=== PATIENT | male | born 1955 | race Caucasian/White ===

== ENCOUNTER 2017-08-01 13:08 | Emergency (ER) | payer BC ==
[2017-08-01 13:13] VITALS: TEMP 97.8; BMI 30.4
--- NOTE | 2017-08-01 13:48 | PDOC ---
History of Present Illness <Cain Alvarado - Last Filed: 08/01/17 16:02> - General History Source: Patient Exam Limitations: No Limitations - History of Present Illness Initial Comments: 08/01/17 16:37 The patient is a 62 year old male with a significant PMH of bronchitis who presents to the emergency department with a persistent cough for 1 week. The patient reports that his cough has gotten progressively worse since last tuesday afternoon. He reports that he was on the bus where the air conditioning was on full blast and when he went home that night his cough was constant. The patient reports that he went to see his doctor on tuesday by which he was diagnosed with an upper chest infection and was given antibiotics that he has been compliant with. The patient reports that he still has a persistent cough with associated phlegm. He reports that he felt a subjective fever this morning. He states that he took tylenol with little relief. He denies any other symptoms. He denies any chest pain, shortness of breath, headache and dizziness. He denies any chills, nausea, vomit, diarrhea ,constipation or urinary symptoms. The patient denies any other complaints. It is noted that the patient had sick contact with his granddaughter. <Blane Lutz - Last Filed: 08/01/17 16:38> - General Chief Complaint: Shortness of Breath Stated Complaint: CHEST PAIN, NAUSEA Time Seen by Provider: 08/01/17 13:48 Past History - Past Medical History COPD: No HTN: Yes Hypercholesterolemia: Yes - Immunization History Immunization Up to Date: Yes - Suicide/Smoking/Psychosocial Hx Smoking Status: No Smoking History: Never smoked Have you smoked in the past 12 months: No Number of Cigarettes Smoked Daily: 0 Information on smoking cessation initiated: No Hx Alcohol Use: Yes (SOCIAL) Drug/Substance Use Hx: No Substance Use Type: None <Cain Alvarado - Last Filed: 08/01/17 16:02> <Blane Lutz - Last Filed: 08/01/17 16:38> - Past Medical History Allergies/Adverse Reactions: Allergies Allergy/AdvReac Type Severity Reaction Status Date / Time Penicillins Allergy Verified 08/01/17 13:09 Home Medications: Ambulatory Orders Atorvastatin Ca [Lipitor] 10 mg PO HS #0 tablet 09/17/15 Metoprolol Tartrate [Lopressor -] 25 mg PO DAILY #0 tablet 09/17/15 Montelukast Na [Singulair -] 10 mg PO HS #0 tablet 09/17/15 Polyethylene Glycol 3350 [Miralax 119 gm Btl -] 17 gm PO DAILY PRN #0 bottle Albuterol Sulfate Inhaler - [Ventolin HFA Inhaler -] 1 - 2 inh PO Q4H #1 inhaler 08/01/17 Review of Systems - Review of Systems Able to Perform ROS?: Yes Comments:: 08/01/17 16:37 Constitutional: No recent illness; no fever ENT: No sore throat Cardiovascular: No palpitations; no chest pain Pulmonary: (+)cough; no trouble breathing Gastrointestinal: No nausea; no vomiting; no diarrhea Genitourinary: No urinary problems; no hematuria Skin: No rash Lymph system: No swollen glands Musculoskeletal: No joint swelling Neurological: No weakness; oo numbness; No Headache; no vertigo; no lightheadedness Psychiatric:No anxiety; no depression <Blane Lutz - Last Filed: 08/01/17 16:38> *Physical Exam - Vital Signs Last Vital Signs Temp Pulse Resp BP Pulse Ox 97.8 F 98 H 18 131/94 100 08/01/17 13:10 08/01/17 13:10 08/01/17 13:10 08/01/17 13:10 08/01/17 13:10 <Cain Alvarado - Last Filed: 08/01/17 16:02> - Vital Signs Last Vital Signs Temp Pulse Resp BP Pulse Ox 97.8 F 98 H 18 131/94 100 08/01/17 13:10 08/01/17 13:10 08/01/17 13:10 08/01/17 13:10 08/01/17 13:10 - Physical Exam Comments: 08/01/17 16:37 Vitals: Triage vital signs reviewed General Appearance: No acute distress, well nourished, well developed Head: Atraumatic Throat: Posterior oropharynx without erythema, mucous membranes moist Neck: Supple; No nuchal rigidity Chest Wall: Nontender Cardiac: Regular rate and rhythm, no murmurs, no rubs, no gallops Lungs: Clear to auscultation bilateral, good air movement bilaterally Abdomen: Soft, nondistended, normal bowel sounds, nontender to palpation Genitourinary: Rectal: Exam deferred Extremities: Full range of motion to all extremities, no cyanosis, clubbing, or edema Skin: Warm and dry, no rashes or lesions, no rash, no petechiae Psych: Normal mood, normal affect <Blane Lutz - Last Filed: 08/01/17 16:38> ED Treatment Course - LABORATORY CBC & Chemistry Diagram: 08/01/17 15:00 08/01/17 15:00 <Cain Alvarado - Last Filed: 08/01/17 16:02> - LABORATORY CBC & Chemistry Diagram: 08/01/17 15:00 08/01/17 15:00 - ADDITIONAL ORDERS Additional order review: Laboratory Results 08/01/17 15:00 Sodium 145 Potassium 4.7 Chloride 109 H Carbon Dioxide 31 Anion Gap 5 L BUN 14 Creatinine 1.0 Creat Clearance w eGFR > 60 Random Glucose 114 H D Calcium 9.4 Total Bilirubin 0.4 AST 9 L D ALT 20 Alkaline Phosphatase 85 Troponin I < 0.02 Total Protein 7.7 Albumin 4.2 08/01/17 15:00 RBC 5.57 MCV 88.1 MCHC 33.1 RDW 14.2 MPV 7.3 L Neutrophils % 72.1 Lymphocytes % 18.0 Monocytes % 8.7 Eosinophils % 0.8 Basophils % 0.4 - Medications Given in the ED: ED Medications Discontinued Medications Generic Name Dose Route Start Last Admin Trade Name Freq PRN Reason Stop Dose Admin Albuterol/Ipratropium 3 amp 08/01/17 15:04 08/01/17 15:05 Duoneb - NEB 08/01/17 15:05 3 amp ONCE ONE Administration <Blane Lutz - Last Filed: 08/01/17 16:38> Medical Decision Making - Medical Decision Making 08/01/17 15:24 62 years old presents to the ED with persistent cough. Patient seen and treated for presumed bronchitis by his primary care provider montelukast and azithromycin however symptomatology of cough productive for sputum continues No fever mild chest discomfort with cough no shortness of breath. No PE DVT risk factors. We'll check chest x-ray labs EKG treat with duo nebs observe and reassess. Differential diagnosis includes viral URI pneumonia or ALLERGIC symptoms 08/01/17 15:58 Reevaluation: Patient feels much better after DuoNeb. No fever no white count no evidence of pneumonia on x-ray labs EKG all within normal limits EKG with no evidence of ischemia troponin negative History examination consistent with resolving pneumonia and given the patient's been treated with azithromycin versus viral bronchitis Findings, need follow-up, strict return instructions discussed with patient. <Cain Alvarado - Last Filed: 08/01/17 16:02> - Medical Decision Making 08/01/17 16:38 The patient is a 62 year old male with a significant PMH of bronchitis who presents to the emergency department with a persistent cough for 1 week. The patient will get a chest x ray and breathing treatment and will be monitored while awaiting results. <Blane Lutz - Last Filed: 08/01/17 16:38> *DC/Admit/Observation/Transfer - Discharge Dispostion Decision to Admit order: No <Cain Alvarado - Last Filed: 08/01/17 16:02> - Attestations Scribe Attestion: 08/01/17 16:38 Documentation prepared by Blane Lutz, acting as medical practitioners for Cain Alvarado MD. <Blane Lutz - Last Filed: 08/01/17 16:38> Diagnosis at time of Disposition: Cough - Prescriptions Prescriptions: Albuterol Sulfate Inhaler - [Ventolin HFA Inhaler -] 1 - 2 inh PO Q4H #1 inhaler - Patient Instructions Printed Discharge Instructions: Cough
[2017-08-01] MEDS ORDERED: ALBUTEROL SO4 2.5/IPRATROPIUM 0.5 INH SOL 3 ML VIAL.NEB. NEB ONE ×2 (15:04→15:17)
[2017-08-01 15:10] LABS: BASO % 0.4 % (0-2.0); EOS % 0.8 % (0-4.5); HEMATOCRIT 49.1 % (35.4-49); HEMOGLOBIN 16.3 GM/dL (11.7-16.9); MCH 29.2 pg (25.7-33.7); MCHC 33.1 g/dl (32.0-35.9); MEAN CELL VOLUME 88.1 fl (80-96); MEAN PLT VOLUME 7.3 fl (7.5-11.1); MONO % 8.7 % (3.8-10.2); NEUT % 72.1 % (42.8-82.8); PLATELET COUNT 307 K/MM3 (134-434); RBC 5.57 M/mm3 (4.00-5.60); RDW 14.2 % (11.9-15.9); WHITE BLOOD COUNT 8.2 K/mm3 (4.0-10.0)
[2017-08-01 15:32] LABS: ALBUMIN 4.2 g/dl (3.4-5.0); ANION GAP 5 (8-16); BLOOD UREA NITROGEN 14 mg/dL (7-18); CALCIUM 9.4 mg/dL (8.5-10.1); CHLORIDE 109 mmol/L (98-107); CO2 31 mmol/L (21-32); GLUCOSE,RANDOM 114 mg/dL (74-106); POTASSIUM 4.7 mmol/L (3.5-5.1); SGOT/AST 9 U/L (15-37); SGPT/ALT 20 U/L (12-78); SODIUM 145 mmol/L (136-145)
[2017-08-01 15:36] LABS: ALK PHOS 85 U/L (45-117); BILIRUBIN,TOTAL 0.4 mg/dL (0.2-1.0); TOT PROT 7.7 g/dl (6.4-8.2)
[2017-08-01 16:54] VITALS: BP 132/88; PULSE 88
--- NOTE | 2017-08-02 11:57 | EKG ---
Test Reason : Blood Pressure : / mmHG Vent. Rate : 092 BPM Atrial Rate : 092 BPM P-R Int : 130 ms QRS Dur : 088 ms QT Int : 370 ms P-R-T Axes : 053 060 065 degrees QTc Int : 457 ms NORMAL SINUS RHYTHM NORMAL ECG WHEN COMPARED WITH ECG OF 07-OCT-2016 17:37, NO SIGNIFICANT CHANGE WAS FOUND Confirmed by MD PEARL, ESVIN ([id number]) on 08/02/2017 11:56:47 AM Referred By: Confirmed By:ESVIN KANG MD
== END 2017-08-01 16:54 | disposition home or self-care (01) ==
LOC: JER 13:08
PROC: 3E0F7GC Introduction of Other Therapeutic Substance into Respiratory Tract, Via Natural or Artificial Opening (ICD-10-PCS; principal; 2017-08-01)
DX: R05 Cough (principal); I10 Essential (primary) hypertension; E78.00 Pure hypercholesterolemia, unspecified
CPT/HCPCS: 36415; 71046-TC-FY; 80053; 84484; 85025; 93005; 93010; 99283-25; J7620

== ENCOUNTER 2017-12-07 11:35 | Emergency (ER) | payer BC ==
[2017-12-07 11:53] VITALS: BP 134/79; PULSE 102; TEMP 98.2; BMI 30.4
[2017-12-07] MEDS ORDERED: ALBUTEROL SO4 2.5/IPRATROPIUM 0.5 INH SOL 3 ML VIAL.NEB. NEB ONE ×2 (12:06→12:30)
--- NOTE | 2017-12-07 12:40 | PDOC ---
History of Present Illness - General Chief Complaint: Respiratory Stated Complaint: RESPIRATORY Time Seen by Provider: 12/07/17 12:13 History Source: Patient Exam Limitations: No Limitations - History of Present Illness Initial Comments: 12/07/17 12:30 c/o 1 week cough worse the past 24hrs coughing up brown sputum no fever or chills. history of bronchitis. non smoker no asthma. Past History - Past Medical History Allergies/Adverse Reactions: Allergies Allergy/AdvReac Type Severity Reaction Status Date / Time Penicillins Allergy Verified 12/07/17 11:53 Home Medications: Ambulatory Orders Albuterol Sulfate Inhaler - [Ventolin Hfa Inhaler -] 1 - 2 inh PO QID #1 inhaler 12/07/17 COPD: No HTN: Yes Hypercholesterolemia: Yes - Immunization History Immunization Up to Date: Yes - Suicide/Smoking/Psychosocial Hx Smoking Status: No Smoking History: Never smoked Have you smoked in the past 12 months: No Number of Cigarettes Smoked Daily: 0 Hx Alcohol Use: Yes (SOCIAL) Drug/Substance Use Hx: No Substance Use Type: None Respiratory Specific PMHX - Complaint Specific PMHX Bronchitis: Yes Review of Systems - Review of Systems Able to Perform ROS?: Yes Is the patient limited Filipino proficient: No Constitutional: No: Symptoms Reported HEENTM: No: Symptoms Reported Respiratory: Yes: Symptoms reported, Cough *Physical Exam - Vital Signs Last Vital Signs Temp Pulse Resp BP Pulse Ox 98.2 F 102 H 22 134/79 97 12/07/17 11:51 12/07/17 11:51 12/07/17 11:51 12/07/17 11:51 12/07/17 11:51 - Physical Exam General Appearance: Yes: Nourished, Appropriately Dressed HEENT: positive: EOMI, YARY Neck: positive: Supple. negative: Tender Respiratory/Chest: positive: Rhonchi (scattered ). negative: Chest Tender Cardiovascular: positive: Regular Rhythm, Regular Rate Gastrointestinal/Abdominal: positive: Normal Bowel Sounds, Soft Musculoskeletal: positive: Normal Inspection Extremity: positive: Normal Capillary Refill, Normal Inspection, Normal Range of Motion Integumentary: positive: Normal Color, Dry, Warm Neurologic: positive: Fully Oriented, Alert, Normal Mood/Affect, Normal Response , Motor Strength 5/5 ED Treatment Course - RADIOLOGY Radiology Studies Ordered: Category Date Time Status CHEST PA & LAT [RAD] Stat Radiology 12/07/17 12:30 Ordered Medical Decision Making - Medical Decision Making 12/07/17 12:41 cc: cough brown sputum last 24hrs no shortness of breath no chest pain will give nebulizer pt is non smoker *DC/Admit/Observation/Transfer Diagnosis at time of Disposition: Bronchitis - Discharge Dispostion Disposition: HOME Condition at time of disposition: Good - Prescriptions Prescriptions: Albuterol Sulfate Inhaler - [Ventolin Hfa Inhaler -] 1 - 2 inh PO QID #1 inhaler - Referrals - Patient Instructions Printed Discharge Instructions: DI for Acute Bronchitis Additional Instructions: drink pleanty of water take tylenol 650mg every 4-6hrs for fever or body pain as needed use the inhaler every 4-6hrs for cough, wheezing increase vitamin C intake to boost immune system follow with your doctor for any worsening symptoms return to ER for any high fever, short of breath , unable to eat or drink or any other concerns - Post Discharge Activity
== END 2017-12-07 13:32 | disposition home or self-care (01) ==
LOC: JERFT 11:35
PROC: 3E0F7GC Introduction of Other Therapeutic Substance into Respiratory Tract, Via Natural or Artificial Opening (ICD-10-PCS; principal; 2017-12-07)
DX: J40 Bronchitis, not specified as acute or chronic (principal)
CPT/HCPCS: 71046-TC-FY; 99281-25; J7620

== ENCOUNTER 2017-12-29 11:29 | Emergency (ER) | payer BC ==
[2017-12-29 12:14] VITALS: BP 109/67; PULSE 92; TEMP 98.8; BMI 30.4
[2017-12-29] MEDS ORDERED: ALBUTEROL SO4 2.5/IPRATROPIUM 0.5 INH SOL 3 ML VIAL.NEB. NEB ONE ×2 (12:54→12:57)
--- NOTE | 2017-12-29 13:06 | PDOC ---
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 Severity: reports: mild Past History - Past Medical History Allergies/Adverse Reactions: Allergies Allergy/AdvReac Type Severity Reaction Status Date / Time Penicillins Allergy Verified 12/29/17 12:10 Home Medications: Ambulatory Orders Albuterol Sulfate Inhaler - [Ventolin Hfa Inhaler -] 1 - 2 inh PO QID #1 inhaler 12/07/17 Fluticasone Prop 0.05% Nasal [Flonase -] 1 - 2 spray NS DAILY #1 spray.pump 02/05 COPD: No HTN: Yes Hypercholesterolemia: Yes - Immunization History Immunization Up to Date: Yes - Suicide/Smoking/Psychosocial Hx Smoking Status: No Smoking History: Never smoked Have you smoked in the past 12 months: No Number of Cigarettes Smoked Daily: 0 Hx Alcohol Use: No Drug/Substance Use Hx: No Substance Use Type: None Respiratory Specific PMHX - Complaint Specific PMHX Bronchitis: Yes Review of Systems - Review of Systems Able to Perform ROS?: Yes Is the patient limited Japanese proficient: No Constitutional: No: Symptoms Reported HEENTM: No: Symptoms Reported Respiratory: Yes: Cough Cardiac (ROS): No: Symptoms Reported ABD/GI: No: Symptoms Reported : No: Symptoms Reported Musculoskeletal: No: Symptoms Reported Integumentary: No: Symptoms Reported *Physical Exam - Vital Signs Last Vital Signs Temp Pulse Resp BP Pulse Ox 98.8 F 92 H 18 109/67 98 12/29/17 12:11 12/29/17 12:11 12/29/17 12:11 12/29/17 12:11 12/29/17 12:11 - Physical Exam General Appearance: Yes: Nourished, Appropriately Dressed HEENT: positive: EOMI, YARY, Normal ENT Inspection, TMs Normal, Pharynx Normal Neck: positive: Supple. negative: Tender Respiratory/Chest: positive: Lungs Clear, Normal Breath Sounds, Decreased Breath Sounds. negative: Chest Tender, Paradoxal Breathing, Crackles, Rales, Rhonchi, Stridor, Wheezing, Hyperresonant, Dullness Cardiovascular: positive: Regular Rhythm, Regular Rate Gastrointestinal/Abdominal: positive: Normal Bowel Sounds, Soft Musculoskeletal: positive: Normal Inspection Extremity: positive: Normal Capillary Refill, Normal Inspection, Normal Range of Motion Integumentary: positive: Normal Color, Dry, Warm Neurologic: positive: Fully Oriented, Alert, Normal Mood/Affect, Normal Response , Motor Strength 07/23 ED Treatment Course - Medications Given in the ED: ED Medications Discontinued Medications Generic Name Dose Route Start Last Admin Trade Name Freq PRN Reason Stop Dose Admin Albuterol/Ipratropium 1 amp 12/29/17 12:54 12/29/17 13:00 Duoneb - NEB 12/29/17 12:55 1 amp ONCE ONE Administration Medical Decision Making - Medical Decision Making 12/29/17 13:13 cc: cough , no fever ran out of antihistamine has had bronchitis for the past 2-3 weeks improved with inhaler and prednisone pt denies chest pain, shortness of breath no abd pain or swelling to legs. *DC/Admit/Observation/Transfer Diagnosis at time of Disposition: Bronchitis - Discharge Dispostion Disposition: HOME Condition at time of disposition: Good - Prescriptions Prescriptions: Fluticasone Prop 0.05% Nasal [Flonase -] 1 - 2 spray NS DAILY #1 spray.pump - Referrals - Patient Instructions Additional Instructions: please follow with your primary care or the pulmonolgy doctor [phone] use your inhaler that you have at home continue taking your allergy medication use the Flonase to help with cough and post nasal drip return if any worse bring copies of the cat scan with you to your doctor - Post Discharge Activity
== END 2017-12-29 16:37 | disposition home or self-care (01) ==
LOC: JERFT 11:29
PROC: 3E0F7GC Introduction of Other Therapeutic Substance into Respiratory Tract, Via Natural or Artificial Opening (ICD-10-PCS; principal; 2017-12-29)
DX: J40 Bronchitis, not specified as acute or chronic (principal); I10 Essential (primary) hypertension; E78.00 Pure hypercholesterolemia, unspecified
CPT/HCPCS: 71250-TC; 99281-25; J7620

== ENCOUNTER 2018-01-20 11:28 | Emergency (ER) | payer BC ==
[2018-01-20 11:45] VITALS: BP 148/84; PULSE 94; TEMP 98.3; BMI 30.4
[2018-01-20] MEDS ORDERED: ALBUTEROL SO4 2.5/IPRATROPIUM 0.5 INH SOL 3 ML VIAL.NEB. NEB ONE ×2 (12:30→12:31)
--- NOTE | 2018-01-20 12:35 | PDOC ---
History of Present Illness - General Chief Complaint: Respiratory Stated Complaint: CHEST PAIN Time Seen by Provider: 01/20/18 12:18 History Source: Patient Exam Limitations: No Limitations - History of Present Illness Initial Comments: 01/20/18 12:30 62 yr male with history of asthma states he called out of work today because he was coughing during the night. no fever no shortness of breath. 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 Past History - Past Medical History Allergies/Adverse Reactions: Allergies Allergy/AdvReac Type Severity Reaction Status Date / Time Penicillins Allergy Verified 01/20/18 11:41 Home Medications: Ambulatory Orders Albuterol Sulfate Inhaler - [Ventolin Hfa Inhaler -] 1 - 2 inh PO QID #1 inhaler 12/07/17 Fluticasone Prop 0.05% Nasal [Flonase -] 1 - 2 spray NS DAILY #1 spray.pump 02/05 Asthma: Yes COPD: No HTN: Yes Hypercholesterolemia: Yes - Immunization History Immunization Up to Date: Yes - Suicide/Smoking/Psychosocial Hx Smoking Status: No Smoking History: Never smoked Have you smoked in the past 12 months: No Number of Cigarettes Smoked Daily: 0 Hx Alcohol Use: No Drug/Substance Use Hx: No Substance Use Type: None Respiratory Specific PMHX - Complaint Specific PMHX Bronchitis: Yes Pneumonia: Yes Review of Systems - Review of Systems Able to Perform ROS?: Yes Is the patient limited Mexican proficient: No Constitutional: No: Symptoms Reported HEENTM: No: Symptoms Reported Respiratory: Yes: Cough Integumentary: No: Symptoms Reported *Physical Exam - Vital Signs Last Vital Signs Temp Pulse Resp BP Pulse Ox 98.3 F 94 H 18 148/84 99 01/20/18 11:43 01/20/18 11:43 01/20/18 11:43 01/20/18 11:43 01/20/18 11:43 - Physical Exam General Appearance: Yes: Nourished, Appropriately Dressed HEENT: positive: EOMI, YARY, Normal ENT Inspection, TMs Normal, Pharynx Normal Neck: positive: Supple. negative: Tender Respiratory/Chest: positive: Lungs Clear, Normal Breath Sounds. negative: Chest Tender, Paradoxal Breathing, Crackles, Rales, Rhonchi, Stridor, Wheezing, Hyperresonant, Dullness Cardiovascular: positive: Regular Rhythm, Regular Rate Gastrointestinal/Abdominal: positive: Normal Bowel Sounds, Soft Lymphatic: negative: Adenopathy Musculoskeletal: positive: Normal Inspection Extremity: positive: Normal Capillary Refill, Normal Inspection, Normal Range of Motion Integumentary: positive: Normal Color, Dry, Warm Neurologic: positive: Fully Oriented, Alert, Normal Mood/Affect, Normal Response , Motor Strength 5/5 Medical Decision Making - Medical Decision Making 01/20/18 12:37 cc: cough called out of work asking for work note pt has no fever no wheezing, stable vitals will give duoneb as pt states that made him feel better in the past pt has history of asthma no intubations *DC/Admit/Observation/Transfer Diagnosis at time of Disposition: Cough - Discharge Dispostion Disposition: HOME Condition at time of disposition: Good - Referrals Referrals: Jean Calderón MD [Primary Care Provider] - Felice Ramos MD [Staff Physician] - - Patient Instructions Additional Instructions: please follow with your doctor or with the pulmonary doctor Dr. Alcala drink pleanty of water, take vitamin C such as Jyotsna C to boost immune system return if any worsening symptoms - Post Discharge Activity Forms/Work/School Notes: Back to Work
--- NOTE | 2018-01-23 12:00 | EKG ---
Test Reason : Blood Pressure : / mmHG Vent. Rate : 092 BPM Atrial Rate : 092 BPM P-R Int : 126 ms QRS Dur : 102 ms QT Int : 376 ms P-R-T Axes : 056 065 060 degrees QTc Int : 464 ms NORMAL SINUS RHYTHM NORMAL ECG WHEN COMPARED WITH ECG OF 01-AUG-2017 13:17, NO SIGNIFICANT CHANGE WAS FOUND Confirmed by ADDY FLEMING MD ([id number]) on 01/23/2018 11:59:27 AM Referred By: Confirmed By:ADDY FLEMING MD
== END 2018-01-20 12:52 | disposition home or self-care (01) ==
LOC: JERFT 11:28
PROC: 3E0F7GC Introduction of Other Therapeutic Substance into Respiratory Tract, Via Natural or Artificial Opening (ICD-10-PCS; principal; 2018-01-20)
DX: R05 Cough (principal); I10 Essential (primary) hypertension; E78.00 Pure hypercholesterolemia, unspecified
CPT/HCPCS: 93005; 93010; 99281-25

== ENCOUNTER 2018-05-11 11:54 | Emergency (ER) | payer BC ==
[2018-05-11 12:03] VITALS: BP 139/81; PULSE 98; TEMP 98.6; BMI 30.4
[2018-05-11] MEDS ORDERED: ALBUTEROL SO4 2.5/IPRATROPIUM 0.5 INH SOL 3 ML VIAL.NEB. NEB ONE ×2 (12:49→12:51)
--- NOTE | 2018-05-11 12:49 | PDOC ---
History of Present Illness - General Chief Complaint: Cold Symptoms Stated Complaint: COUGHING Time Seen by Provider: 05/11/18 12:14 History Source: Patient Exam Limitations: No Limitations - History of Present Illness Initial Comments: 05/11/18 13:11 HISTORY OF PRESENT ILLNESS: This 63-year-old male denies medical history presents emergency department for evaluation of coughing since last night. Patient reports while waiting for the bus she was surrounded by smokers and other people who were coughing and his direction. Patient reports when he got home he began coughing and has had coughing fits throughout the night. Patient reports one episode of posttussive vomiting. Denies any fevers, chills, headache , chest pain, abdominal pain, nausea. No recent travel or sick contacts. PAST MEDICAL HISTORY: Denies past medical history SURGICAL HISTORY: Denies ALLERGIES: PCN REVIEW OF SYSTEMS General/Constitutional: Denies fever or chills. Denies weakness, weight change. HEENT: Denies change in vision. Denies ear pain or discharge. Denies sore throat. Cardiovascular: Denies chest pain or shortness of breath. Respiratory: see HPI Gastrointestinal: Denies nausea, vomiting, diarrhea or constipation. Denies rectal bleeding. Genitourinary: Denies dysuria, frequency, or change in urination. Musculoskeletal: Denies joint or muscle swelling or pain. Denies neck or back pain. Skin and breasts: Denies rash or easy bruising. Neurologic: Denies headache, vertigo, loss of consciousness, or loss of sensation. Psychiatric: Denies depression or anxiety. Endocrine: Denies increased thirst. Denies abnormal weight change. Hematologic/Lymphatic: Denies anemia, easy bleeding, or history of blood clots. Allergic/Immunologic: Denies hives or skin allergy. Denies latex allergy. PHYSICAL EXAM General Appearance: Well-appearing, appropriately dressed. No apparent distress , no intoxication. HEENT: EOMI, PERRLA, normal ENT inspection, normal voice, TMs normal, pharynx normal. No conjunctival pallor. No photophobia, scleral icterus. Neck: Supple. Trachea midline. No tenderness, rigidity, carotid bruit, stridor , lymphadenopathy, or thyromegaly. Respiratory/Chest: Lungs CTAB. No shortness of breath, chest tenderness, respiratory distress, accessory muscle use. No crackles, rales, rhonchi, stridor , wheezing, dullness Cardiovascular: RRR. S1, S2. No JVD, murmur, bradycardia, tachycardia. Vascular Pulses: Dorsalis-Pedis (R): 2+, Dorsalis-Pedis (L): 2+ Gastrointestinal/Abdominal: Normal bowel sounds. Abdomen soft, non-distended. No tenderness or rebound tenderness. No organomegaly, pulsatile mass, guarding, hernia, hepatomegaly, splenomegaly. Lymphatic: No adenopathy, tenderness. Musculoskeletal/Extremities: Normal inspection. FROM of all extremities, normal capillary refill. Pelvis Stable. No CVA tenderness. No tenderness to extremities, pedal edema, swelling, erythema or deformity. Integumentary: Appropriate color, dry, warm. No cyanosis, erythema, jaundice or rash Neurologic: lap regulator II-XII intact. Fully oriented, alert. Appropriate mood/affect. Motor strength 5/5. No appreciable EOM palsy, facial droop or sensory deficit. Past History - Past Medical History Allergies/Adverse Reactions: Allergies Allergy/AdvReac Type Severity Reaction Status Date / Time Penicillins Allergy Verified 05/11/18 12:01 Home Medications: Ambulatory Orders Benzonatate [Tessalon Pearls -] 200 mg PO TID #42 cap 05/11/18 Asthma: Yes COPD: No HTN: Yes Hypercholesterolemia: Yes - Immunization History Immunization Up to Date: Yes - Suicide/Smoking/Psychosocial Hx Smoking Status: No Smoking History: Never smoked Have you smoked in the past 12 months: No Number of Cigarettes Smoked Daily: 0 Hx Alcohol Use: No Drug/Substance Use Hx: No Substance Use Type: None Respiratory Specific PMHX - Complaint Specific PMHX Bronchitis: Yes Pneumonia: Yes *Physical Exam - Vital Signs Last Vital Signs Temp Pulse Resp BP Pulse Ox 98.6 F 98 H 20 139/81 99 05/11/18 12:01 05/11/18 12:01 05/11/18 12:01 05/11/18 12:01 05/11/18 12:01 Moderate Sedation - Procedure Monitoring Vital Signs: Procedure Monitoring Vital Signs Temperature 98.6 F 05/11/18 12:01 Pulse Rate 98 H 05/11/18 12:01 Respiratory Rate 20 05/11/18 12:01 Blood Pressure 139/81 05/11/18 12:01 O2 Sat by Pulse Oximetry (%) 99 05/11/18 12:01 Medical Decision Making - Medical Decision Making 05/11/18 13:16 Social A/P: 63-year-old male with nonproductive cough for 1 day No fevers Denies chest pain Not on any medications Patient likely with bronchitis DuoNeb's Reassess 05/11/18 13:25 Patient expresses relief and is requesting discharge at this time. I will discharge the patient home with prescription for Tessalon Perles and follow-up with primary doctor. I discussed the physical exam findings, ancillary test results and final diagnoses with the patient. I answered all of the patient's questions. The patient was satisfied with the care received and felt comfortable with the discharge plan and treatment plan. The patient will call their primary care physician within 24 hours to arrange follow-up and will return to the Emergency Department with any new, persistent or worsening symptoms. *DC/Admit/Observation/Transfer Diagnosis at time of Disposition: Bronchitis - Discharge Dispostion Disposition: HOME Condition at time of disposition: Stable Decision to Admit order: No - Prescriptions Prescriptions: Benzonatate [Tessalon Pearls -] 200 mg PO TID #42 cap - Referrals - Patient Instructions Additional Instructions: Rest, drink lots of fluids: Teas, water, soups, Pedialyte Avoid contact with others until fevers and cough resolved Lots of handwashing and good hygiene Continue [id number] medications for symptomatic relief Tylenol or Motrin for fever and pain Followup with private physician in one to 2 days as needed Return to emergency department for worsened symptoms, fevers, dehydration - Post Discharge Activity Forms/Work/School Notes: Back to Work
== END 2018-05-11 13:33 | disposition home or self-care (01) ==
LOC: JERFT 11:54
PROC: 3E0F7GC Introduction of Other Therapeutic Substance into Respiratory Tract, Via Natural or Artificial Opening (ICD-10-PCS; principal; 2018-05-11)
DX: J40 Bronchitis, not specified as acute or chronic (principal); I10 Essential (primary) hypertension; E78.00 Pure hypercholesterolemia, unspecified; Z87.09 Personal history of other diseases of the respiratory system
CPT/HCPCS: 99281-25

== ENCOUNTER 2018-05-15 12:42 | Observation (INO) | payer BC ==
--- NOTE | 2018-05-15 14:05 | PDOC ---
History of Present Illness - General Chief Complaint: Pain Stated Complaint: SLIP AND FALL Time Seen by Provider: 05/15/18 13:48 - History of Present Illness Initial Comments: 05/15/18 14:04 63-year-old male without comorbidities presents for evaluation of a syncopal episode. He was treated for bronchitis with Tessalon Perles over the last week and today when he got up in the morning to go to bathroom he felt weak syncopized hit his head on the floor he states he may have been unconscious for about 5-7 minutes before his discovered him. Past History - Past Medical History Allergies/Adverse Reactions: Allergies Allergy/AdvReac Type Severity Reaction Status Date / Time Penicillins Allergy Verified 05/11/18 12:01 Home Medications: Ambulatory Orders Benzonatate [Tessalon Pearls -] 200 mg PO TID #42 cap 05/11/18 Asthma: Yes COPD: No HTN: Yes Hypercholesterolemia: Yes - Immunization History Immunization Up to Date: Yes - Suicide/Smoking/Psychosocial Hx Smoking Status: No Smoking History: Never smoked Have you smoked in the past 12 months: No Number of Cigarettes Smoked Daily: 0 Information on smoking cessation initiated: No Hx Alcohol Use: No Drug/Substance Use Hx: No Substance Use Type: None Review of Systems - Review of Systems Constitutional: Yes: Chills, Fever, Malaise, Night Sweats, Weakness Neurological: Yes: See HPI, Unsteady Gait *Physical Exam - Vital Signs Last Vital Signs Temp Pulse Resp BP Pulse Ox 98.7 F 97 H 20 137/76 95 05/15/18 12:48 05/15/18 12:48 05/15/18 12:48 05/15/18 12:48 05/15/18 12:48 - Physical Exam Comments: 05/15/18 14:04 HEAD: NC/AT EYES: Conjuntiva clear Ears: Canals and TM's normal NOSE: No d/c THROAT: Moist mucous membrances, oral pharanx clear, uvula midline NECK: Supple without adenopathy CARDIAC: S1 S2 LUNGS: Right sided basilar rhonchi otherwise clear ABDOMEN: Soft NT ND MS: Full ROM in all joints without edema NEUROLOGIC: No gross sensory or motor deficits, NVID SKIN: Normal color and temperature no lesions or rashes Moderate Sedation - Procedure Monitoring Vital Signs: Procedure Monitoring Vital Signs Temperature 98.7 F 05/15/18 12:48 Pulse Rate 97 H 05/15/18 12:48 Respiratory Rate 20 05/15/18 12:48 Blood Pressure 137/76 05/15/18 12:48 O2 Sat by Pulse Oximetry (%) 95 05/15/18 12:48 ED Treatment Course - RADIOLOGY Radiology Studies Ordered: Category Date Time Status CHEST PA & LAT [RAD] Stat Radiology 05/15/18 14:03 Ordered Medical Decision Making - Medical Decision Making 05/15/18 14:05 Preliminary orders placed for cardiac workup and head CAT scan, patient moved to the main emergency room. *DC/Admit/Observation/Transfer Diagnosis at time of Disposition: Syncope - Referrals - Patient Instructions - Post Discharge Activity
[2018-05-15 14:34] LABS: BASO % 0.4 % (0-2.0); EOS % 0.8 % (0-4.5); HEMATOCRIT 48.2 % (35.4-49); HEMOGLOBIN 16.7 GM/dL (11.7-16.9); LYMPH % 21.2 % (8-40); MCH 30.6 pg (25.7-33.7); MCHC 34.7 g/dl (32.0-35.9); MEAN CELL VOLUME 88.2 fl (80-96); MEAN PLT VOLUME 7.2 fl (7.5-11.1); MONO % 9.2 % (3.8-10.2); NEUT % 68.4 % (42.8-82.8); PLATELET COUNT 249 K/MM3 (134-434); RBC 5.46 M/mm3 (4.00-5.60); RDW 13.8 % (11.9-15.9)
--- NOTE | 2018-05-15 14:44 | PDOC ---
History of Present Illness - General Chief Complaint: Pain Stated Complaint: SLIP AND FALL Time Seen by Provider: 05/15/18 13:48 History Source: Patient - History of Present Illness Initial Comments: 05/15/18 14:37 63 yr old man with HTN, HLD, recurrent bronchitis presented to ED s/p syncopal episode resulting in fall. He was coming out of the bathroom walking toward his bedroom, he walked about 2ft when he felt lightheaded and his body turned to the left and he landed onto the right side of his body and hit the back of his head. Thinks he may have been down for about 5mins when his walked down the rodriguez and tried to help him him, initially she was unable to him up, he crawled into his bedroom and helped himself stand up slowly. He was here 4 days ago in the ED for URI symptoms and was sent home with tessalon pearls for cough , he picked up them and started taking them last night. He did not take his metoprolol this morning. He has had syncopal episodes in the past, inpatient holter monitor and head imaging were completed at that time. 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 Past History - Past Medical History Allergies/Adverse Reactions: Allergies Allergy/AdvReac Type Severity Reaction Status Date / Time Penicillins Allergy Verified 05/11/18 12:01 Home Medications: Ambulatory Orders Benzonatate [Tessalon Pearls -] 200 mg PO TID #42 cap 05/11/18 Asthma: Yes COPD: No HTN: Yes Hypercholesterolemia: Yes - Immunization History Immunization Up to Date: Yes - Suicide/Smoking/Psychosocial Hx Smoking Status: No Smoking History: Never smoked Have you smoked in the past 12 months: No Number of Cigarettes Smoked Daily: 0 Information on smoking cessation initiated: No Hx Alcohol Use: No Drug/Substance Use Hx: No Substance Use Type: None Review of Systems - Review of Systems Respiratory: Yes: Cough Cardiac (ROS): Yes: Syncope *Physical Exam - Vital Signs Last Vital Signs Temp Pulse Resp BP Pulse Ox 98.7 F 97 H 20 137/76 95 05/15/18 12:48 05/15/18 12:48 05/15/18 12:48 05/15/18 12:48 05/15/18 12:48 - Physical Exam General Appearance: Yes: Appropriately Dressed HEENT: positive: EOMI, YARY, Normal Voice, Symmetrical, Pharynx Normal. negative: Scleral Icterus (R), Scleral Icterus (L), Pharyngeal Erythema, Tonsillar Exudate, Nasal Congestion, Rhinorrhea, Sinus Tenderness, Thrush Neck: positive: Trachea midline, Normal Thyroid, Supple. negative: Thyromegaly Respiratory/Chest: positive: Chest Tender (left posterior and lateral pain to palpiation below scapula), Crackles (fine right basilar crackles), Rales (LLL). negative: Wheezing Cardiovascular: positive: Regular Rhythm, Regular Rate, S1, S2. negative: Murmur Gastrointestinal/Abdominal: positive: Normal Bowel Sounds, Flat, Soft. negative : Tenderness Neurologic: positive: parish nurse II-XII NML intact, Fully Oriented, Alert, Normal Response, Motor Strength 5/5 Moderate Sedation - Procedure Monitoring Vital Signs: Procedure Monitoring Vital Signs Temperature 98.7 F 05/15/18 12:48 Pulse Rate 97 H 05/15/18 12:48 Respiratory Rate 20 05/15/18 12:48 Blood Pressure 137/76 05/15/18 12:48 O2 Sat by Pulse Oximetry (%) 95 05/15/18 12:48 ED Treatment Course - LABORATORY CBC & Chemistry Diagram: 05/15/18 14:25 05/15/18 14:25 - ADDITIONAL ORDERS Additional order review: 05/15/18 14:25 RBC 5.46 MCV 88.2 MCHC 34.7 RDW 13.8 MPV 7.2 L Neutrophils % 68.4 Lymphocytes % 21.2 Monocytes % 9.2 Eosinophils % 0.8 Basophils % 0.4 Medical Decision Making - Medical Decision Making 05/15/18 14:48 63 yr old man with hx HTN, HLD, recurrent bronchitis, and previous hx of syncope presents with URI symptoms for past week with 1 syncopal episode this morning. check cxy, labs, head ct, EKG to r/o infiltrate, acute infection, electrolyte abnormalities, CVA vs ACS. if head ct negative, r/o ACS with serial troponins and telemonitoring 05/15/18 16:[address] Kate's office regarding pt message was taken by his office staff, pt to be placed under Dr. Kate's service to tele-obs, he will call [phone] with any additional questions. 05/15/18 16:[address] Kate, requests pt to be placed under dr. Riggs's c, he will call dr. riggs himself and inform him pt pending tele bed *DC/Admit/Observation/Transfer Diagnosis at time of Disposition: Syncope - Discharge Dispostion Decision to Admit order: Yes - Referrals - Patient Instructions - Post Discharge Activity
[2018-05-15 14:46] LABS: INR 0.97 (0.83-1.09); PROTHROMBIN TIME (PATIENT) 11.4 SEC (9.7-13.0)
[2018-05-15 15:11] LABS: ALK PHOS 92 U/L (45-117); ANION GAP 4 MMOL/L (8-16); BILIRUBIN,TOTAL 0.5 mg/dL (0.2-1); BLOOD UREA NITROGEN 11 mg/dL (7-18); CHLORIDE 109 mmol/L (98-107); CO2 31 mmol/L (21-32); GLUCOSE,RANDOM 103 mg/dL (74-106); MAGNESIUM 2.3 mg/dL (1.8-2.4); POTASSIUM 4.3 mmol/L (3.5-5.1); SGOT/AST 14 U/L (15-37); SGPT/ALT 23 U/L (13-61); SODIUM 144 mmol/L (136-145); TOT PROT 7.5 g/dl (6.4-8.2)
[2018-05-15] MEDS ORDERED: SODIUM CHLORIDE 1,000 ML IV STA (16:16)
--- NOTE | 2018-05-15 16:20 | PDOC ---
Attending Attestation - HPI HPI: 05/15/18 16:20 The patient is a 63 year old male with a past medical history of HTN, HLD, and recurrent bronchitis here today for evaluation of syncopal episode. The patient reports that he was in his bathroom this morning when he began to feel dizzy and lose his balance. He reports falling and hitting the back of his head and remained on the floor for 5 minutes until his helped him up. Patient denies headache. Denies fever, chills. Denies chest pain, shortness of breath. Denies nausea, vomiting, diarrhea, abdominal pain. Allergies: penicillins PCP: Hardeep Enriquez - Medical Decision Making 05/15/18 16:21 Documentation prepared by SIENNA Small, acting as medical oncology physician for Cain Alvarado MD. The patient is a 63 year old male with a past medical history of HTN, HLD, and recurrent bronchitis here today for evaluation of syncopal episode. <Sukhjinder Armijo - Last Filed: 05/15/18 16:20> - Resident Resident Name: Saba Abdul - ED Attending Attestation I have performed the following: I have examined & evaluated the patient, The case was reviewed & discussed with the resident, I agree w/resident's findings & plan, Exceptions are as noted - Physicial Exam PE: 05/15/18 16:52 Reviewed Residents PE - Medical Decision Making 63 years old with unprovoked syncopal episode with head trauma Labs head CT unremarkable we'll observe overnight on telemetry for further management. <Cain Alvarado - Last Filed: 05/15/18 16:53>
--- NOTE | 2018-05-15 20:20 | EKG ---
Test Reason : Blood Pressure : / mmHG Vent. Rate : 083 BPM Atrial Rate : 083 BPM P-R Int : 138 ms QRS Dur : 082 ms QT Int : 378 ms P-R-T Axes : 053 051 057 degrees QTc Int : 444 ms NORMAL SINUS RHYTHM POSSIBLE LEFT ATRIAL ENLARGEMENT POSSIBLE SEPTAL INFARCT , AGE UNDETERMINED ABNORMAL ECG WHEN COMPARED WITH ECG OF 20-JAN-2018 11:41, SEPTAL INFARCT IS NOW PRESENT Confirmed by LONNIE PLAZA, ADDY ([id number]) on 05/15/2018 8:20:32 PM Referred By: RAPHAEL Confirmed By:ADDY FLEMING MD
[2018-05-16 06:07] VITALS: BMI 29.9
--- NOTE | 2018-05-16 10:18 | HP ---
Admitting History and Physical - Primary Care Physician PCP: Shiela Mack - Admission Chief Complaint: syncope History of Present Illness: ER HISTORY 05/15/18 14:37 63 yr old man with HTN, HLD, recurrent bronchitis presented to ED s/p syncopal episode resulting in fall. He was coming out of the bathroom walking toward his bedroom, he walked about 2ft when he felt lightheaded and his body turned to the left and he landed onto the right side of his body and hit the back of his head. Thinks he may have been down for about 5mins when his walked down the rodriguez and tried to help him him, initially she was unable to him up, he crawled into his bedroom and helped himself stand up slowly. He was here 4 days ago in the ED for URI symptoms and was sent home with tessalon pearls for cough , he picked up them and started taking them last night. He did not take his metoprolol this morning. He has had syncopal episodes in the past, inpatient holter monitor and head imaging were completed at that time. 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 Pt examined by me in Telemetry Has no complaints Has had similar episode in 2016-- negative work up including stress test He had bronchitis symptoms, getting better, appetite was better , drinking fluids. He felt uneasy on Tuesday but felt lightheaded when he woke up Tuesday morning to go to work. Syncopized and hit the back of his head. Denies chest pain or palpitations, dizziness chronic history of insomnia-- usually takes an antihistamine to help him sleep He is not on any prescribed medications including Metoprolol History Source: Patient Limitations to Obtaining History: No Limitations - Past Medical History Cardiovascular: No: AFIB, Aneurysm, Aortic Insufficiency, Aortic Stenosis, CAD, CHF, Deep Vein Thrombosis, HTN, Hyperlipdemia, [place], Mitral Insufficiency, Mitral Stenosis, Murmur, Pulmonary Hypertension, Other Gastrointestinal: Yes: Constipation, Other (H/O Peptic ulcer disease) Psych: Yes: Other ("Panic attacks") Dermatology: Yes: Other (No rashes) - Past Surgical History Past Surgical History: Yes: Cataract Removal (1992), Hernia Repair (2003) - Smoking History Smoking history: Never smoked Have you smoked in the past 12 months: No Aproximately how many cigarettes per day: 0 - Alcohol/Substance Use Hx Alcohol Use: No History of Substance Use: reports: None - Social History 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 Home Medications - Allergies Allergies/Adverse Reactions: Allergies Allergy/AdvReac Type Severity Reaction Status Date / Time Penicillins Allergy Verified 05/11/18 12:01 - Home Medications Home Medications: Ambulatory Orders Benzonatate [Tessalon Pearls -] 200 mg PO TID #42 cap 05/11/18 Review of Systems - Review of Systems Constitutional: denies: Chills, Fever, Lethargy, Loss of Appetite, Weakness Cardiovascular: denies: Chest Pain, Palpitations, Shortness of Breath Respiratory: reports: Cough Gastrointestinal: denies: Abdominal Pain Physical Examination Vital Signs: Vital Signs Temperature 98.2 F 05/16/18 10:00 Pulse Rate 88 05/16/18 10:00 Respiratory Rate 15 05/16/18 10:00 Blood Pressure 128/73 05/16/18 10:00 O2 Sat by Pulse Oximetry (%) 99 05/16/18 05:44 Constitutional: Yes: No Distress, Calm Cardiovascular: Yes: Regular Rate and Rhythm Respiratory: Yes: CTA Bilaterally Gastrointestinal: Yes: Normal Bowel Sounds, Soft. No: Tenderness Edema: No Psychiatric: Yes: Alert, Oriented Labs: CBC, BMP 05/15/18 14:25 05/15/18 14:25 Imaging - Results Chest X-ray: Image Reviewed (no infiltrate) Cat Scan: Report Reviewed (CT head negative) EKG: Image Reviewed (NSR , NO ST changes) Problem List - Problems (1) Syncope Assessment/Plan: Check another set of cardiac enzymes telemetry check Echo, carotid doppler cardiology evaluation orthostasis Code(s): R55 - SYNCOPE AND COLLAPSE (2) Bronchitis Assessment/Plan: viral etiology no antibiotics for now Code(s): J40 - BRONCHITIS, NOT SPECIFIED ACUTE OR CHRONIC (3) Closed head injury Assessment/Plan: Ct head negative no complaints of pain or dizziness DVT prophylaxis-- lovenox sc Code(s): S09.90XA - UNSPECIFIED INJURY OF HEAD, INITIAL ENCOUNTER
--- NOTE | 2018-05-16 13:47 | ECHO ---
Name: CHATO RONQUILLO Exam:Adult Echocardiogram Study Date: 05/16/2018 11:34 AM Age: 63 yrs Reason For Study: SYNCOPE Height: 68 in Weight: 197 lb BSA: 2.0 m2 Procedure A complete two-dimensional transthoracic echocardiogram was performed (2D, M-mode, Doppler and color flow Doppler). The study was technically difficult with many images being suboptimal in quality. Left Ventricle The left ventricular size, thickness and function are normal. Ejection Fraction = 60%. The transmitra l spectral Doppler flow pattern is suggestive of impaired LV relaxation. The left ventricular wall xavier on is normal. Right Ventricle The right ventricle is normal in size and function. Atria Normal left and right atrial size and function. Mitral Valve The mitral valve is normal in structure and function. There is trace mitral regurgitation. Tricuspid Valve The tricuspid valve is not well visualized. There is trace tricuspid regurgitation. There was insuffi cient TR detected to calculate RV systolic pressure. Aortic Valve There is mild aortic sclerosis.;. Pulmonic Valve The pulmonic valve is not well visualized. Great Vessels The aortic root is not well visualized. Pericardium/Pleura There is no pericardial effusion. There is no pleural effusion. Interpretation Summary The study was technically difficult with many images being suboptimal in quality. The left ventricular size, thickness and function are normal Ejection Fraction = 60%. There is trace mitral regurgitation. There is trace tricuspid regurgitation. There is mild aortic sclerosis.; MD Tariq Araiza 05/16/2018 01:47 PM
--- NOTE | 2018-05-16 14:15 | CON.CARD ---
Consult Consult Specialty:: cardiology Reason for Consultation:: syncope - History of Present Illness Chief Complaint: Pt A&Ox3; no chest pain, dizziness, palpitations, or dyspnea. + dry cough History of Present Illness: 63-year-old white male with PMHx syncope (3 yrs ago), anxiety, now presents for evaluation of a syncopal episode. He was treated for bronchitis with Tessalon Perles over the last week and today when he got up in the morning to go to bathroom he felt weak; he syncopized and hit his head on the floor. He states he may have been unconscious for about 5-7 minutes before his discovered him. Stress treadmill MIBI 08/2015: no ischemia. 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 He often feels a high level of stress from the responsibilities he has at work, and sometimes has to stay overtime. - History Source History Provided By: Patient, Medical Record Limitations to Obtaining History: No Limitations - Past Medical History DIRECTOR LOSS PREVENTION: Yes: Syncope Cardio/Vascular: No: AFIB, Aneurysm, Aortic Insufficiency, Aortic Stenosis, CAD , CHF, Deep Vein Thrombosis, HTN, Hyperlipdemia, CO, Mitral Insufficiency, Mitral Stenosis, Murmur, Pulmonary Hypertension, Other Gastrointestinal: Yes: Constipation, Other (H/O Peptic ulcer disease) Psych: Yes: Anxiety, Panic Dermatology: Yes: Other (No rashes) - Past Surgical History Past Surgical History: Yes: Cataract Removal (1992), Hernia Repair (2003) - Alcohol/Substance Use Hx Alcohol Use: No History of Substance Use: reports: None - Smoking History Smoking history: Never smoked Have you smoked in the past 12 months: No Aproximately how many cigarettes per day: 0 - Social History Usual Living Arrangement: With Spouse 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 Home Medications - Allergies Allergies/Adverse Reactions: Allergies Allergy/AdvReac Type Severity Reaction Status Date / Time Penicillins Allergy Verified 05/11/18 12:01 - Home Medications Home Medications: Ambulatory Orders Benzonatate [Tessalon Pearls -] 200 mg PO TID #42 cap 05/11/18 Family Disease History - Family Disease History Family History: Denies Review of Systems - Review of Systems Constitutional: reports: No Symptoms Eyes: reports: No Symptoms HENT: reports: No Symptoms Neck: reports: No Symptoms Cardiovascular: reports: No Symptoms Respiratory: reports: No Symptoms Gastrointestinal: reports: No Symptoms Genitourinary: reports: No Symptoms Breasts: reports: No Symptoms Reported Musculoskeletal: reports: No Symptoms Integumentary: reports: No Symptoms Neurological: reports: Syncope Endocrine: reports: No Symptoms Hematology/Lymphatic: reports: No Symptoms Psychiatric: reports: No Symptoms - Risk Factors Known Risk Factors: Yes: Age, Gender, Hypercholesterolemia, Hypertension, Physical Inactivity Vital Signs: Vital Signs Temperature 98.2 F 05/16/18 10:00 Pulse Rate 90 05/16/18 12:00 Respiratory Rate 14 05/16/18 12:00 Blood Pressure 121/71 05/16/18 12:00 O2 Sat by Pulse Oximetry (%) 99 05/16/18 09:00 Constitutional: Yes: Calm Eyes: Yes: WNL HENT: Yes: WNL Neck: Yes: WNL Respiratory: Yes: WNL Gastrointestinal: Yes: WNL Renal/: No: Anuria Cardiovascular: Yes: WNL JVD: No Carotid Bruit: No PMI: Non-Displaced Heart Sounds: Yes: S1, S2 Musculoskeletal: Yes: WNL Extremities: Yes: WNL Edema: No Peripheral Pulses WNL: Yes Integumentary: Yes: WNL Neurological: Yes: WNL ...Motor Strength: WNL Psychiatric: Yes: WNL - Other Data Labs, Other Data: CBC, BMP 05/15/18 14:25 05/15/18 14:25 INR, PTT INR 0.97 (0.83-1.09) 05/15/18 14:25 Troponin, BNP 05/15/18 05/16/18 14:25 11:05 Troponin I < 0.02 < 0.02 Troponin, BNP 05/15/18 05/16/18 14:25 11:05 Troponin I < 0.02 < 0.02 Abnormal Lab Results 05/17/18 05/17/18 05:30 05:30 Hemoglobin A1c % 6.4 H Cholesterol 216 H Total LDL Cholesterol 151 H Ejection Fraction %: LVEF > or = 40 % Imaging - Results Chest X-ray: Image Reviewed EKG: Image Reviewed Problem List - Problems (1) Severe anxiety with panic Code(s): F41.0 - PANIC DISORDER [EPISODIC PAROXYSMAL ANXIETY] (2) Syncope Assessment/Plan: Orthostatic vital signs. Maintain hydration. CT head: no acute pathology; calcifed densities in rt frontal lobe. EKG: NSR; ?LAE; ? septal infarct vs lead placement issue (the latter finding was not present on an earlier EKG). ECHO: normal LVEF: abnormal diastolic compliance; trace MR and TR. Stress MIBI 08/2015: no ischemia; fair exercise functional capacity. F/u TSH. Elevated glucose and HGBA1c; f/u workup for DM. telemetry monitoring; repeat EKG. Carotid artery US: mild intimal thickening; no stenoses. Will consider long-term loop recorder monitoring as outpatient (prior hx of at least 2 other falls in the past several years, at least one of which involved loss of consciousness). Holter monitor 08/2015 showed normal sinus rhythm, infrequent APCs and PVCs. Code(s): R55 - SYNCOPE AND COLLAPSE (3) Closed head injury Code(s): S09.90XA - UNSPECIFIED INJURY OF HEAD, INITIAL ENCOUNTER (4) Cough Code(s): R05 - COUGH (5) Peptic ulcer disease Code(s): K27.9 - PEPTIC ULC, SITE UNSP, UNSP AC OR CHR, W/O HEMOR OR PERF (6) Hyperglycemia Assessment/Plan: glucosee and HGBA1c mildly elevated; f/u workup. Code(s): R73.9 - HYPERGLYCEMIA, UNSPECIFIED (7) Hyperlipidemia Assessment/Plan: f/u lipid profile Code(s): E78.5 - HYPERLIPIDEMIA, UNSPECIFIED
[2018-05-17 06:29] VITALS: PULSE 82
[2018-05-17] MEDS ORDERED: ENOXAPARIN NA (PORCINE) 40 MG/0.4 ML DISP.SYRIN SQ SCH (10:00)
--- NOTE | 2018-05-17 10:08 | PN ---
Progress Note, Physician History of Present Illness: 63-year-old white male with PMHx syncope (3 yrs ago), anxiety, now presents for evaluation of a syncopal episode. He was treated for bronchitis with Tessalon Perles over the last week and today when he got up in the morning to go to bathroom he felt weak; he syncopized and hit his head on the floor. He states he may have been unconscious for about 5-7 minutes before his discovered him. Stress treadmill MIBI 08/2015: no ischemia. 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 He often feels a high level of stress from the responsibilities he has at work, and sometimes has to stay overtime. - History Source History Provided By: Patient, Medical Record Limitations to Obtaining History: No Limitations - Current Medication List Current Medications: Active Medications Enoxaparin Sodium (Lovenox -) 40 mg SQ DAILY GIANLUCA Last Admin: 05/17/18 09:36 Dose: 40 mg - Objective Vital Signs: Vital Signs Temperature 98.4 F 05/17/18 06:00 Pulse Rate 82 05/17/18 06:00 Respiratory Rate 18 05/17/18 06:00 Blood Pressure 131/85 05/17/18 06:00 O2 Sat by Pulse Oximetry (%) 99 05/16/18 22:00 Eyes: Yes: WNL, Conjunctiva Clear, EOM Intact HENT: Yes: WNL, Atraumatic, Normocephalic Neck: Yes: WNL, Supple, Trachea Midline Cardiovascular: Yes: WNL, Regular Rate and Rhythm Respiratory: Yes: WNL, Regular, CTA Bilaterally Gastrointestinal: Yes: WNL, Normal Bowel Sounds Genitourinary: Yes: WNL Musculoskeletal: Yes: WNL Extremities: Yes: WNL Edema: No Integumentary: Yes: WNL Neurological: Yes: WNL, Alert, Oriented ...Motor Strength: WNL Psychiatric: Yes: WNL Labs: CBC, BMP 05/15/18 14:25 05/15/18 14:25 INR, PTT INR 0.97 (0.83-1.09) 05/15/18 14:25 Assessment/Plan Problems (1) Severe anxiety with panic Code(s): F41.0 - PANIC DISORDER [EPISODIC PAROXYSMAL ANXIETY] (2) Syncope Assessment/Plan: Orthostatic vital signs. Maintain hydration. CT head: no acute pathology; calcifed densities in rt frontal lobe. EKG: NSR; ?LAE; ? septal infarct vs lead placement issue (the latter finding was not present on an earlier EKG). ECHO: normal LVEF: abnormal diastolic compliance; trace MR and TR. Stress MIBI 08/2015: no ischemia; fair exercise functional capacity. F/u TSH. Elevated glucose and HGBA1c; f/u workup for DM. telemetry monitoring; repeat EKG. Carotid artery US: mild intimal thickening; no stenoses. Will consider long-term loop recorder monitoring as outpatient (prior hx of at least 2 other falls in the past several years, at least one of which involved loss of consciousness). Holter monitor 08/2015 showed normal sinus rhythm, infrequent APCs and PVCs. Code(s): R55 - SYNCOPE AND COLLAPSE (3) Closed head injury Code(s): S09.90XA - UNSPECIFIED INJURY OF HEAD, INITIAL ENCOUNTER (4) Cough Code(s): R05 - COUGH (5) Peptic ulcer disease Code(s): K27.9 - PEPTIC ULC, SITE UNSP, UNSP AC OR CHR, W/O HEMOR OR PERF (6) Hyperglycemia Assessment/Plan: glucosee and HGBA1c mildly elevated; f/u workup. Code(s): R73.9 - HYPERGLYCEMIA, UNSPECIFIED (7) Hyperlipidemia Assessment/Plan: f/u lipid profile Code(s): E78.5 - HYPERLIPIDEMIA, UNSPECIFIED cc time spent 36 min
--- NOTE | 2018-05-17 10:22 | DS ---
Physical Examination Vital Signs: Vital Signs Temperature 98.4 F 05/17/18 06:00 Pulse Rate 82 05/17/18 06:00 Respiratory Rate 18 05/17/18 06:00 Blood Pressure 131/85 05/17/18 06:00 O2 Sat by Pulse Oximetry (%) 99 05/16/18 22:00 Constitutional: Yes: No Distress, Calm Cardiovascular: Yes: Regular Rate and Rhythm Respiratory: Yes: CTA Bilaterally Gastrointestinal: Yes: Normal Bowel Sounds, Soft. No: Tenderness Edema: No Labs: CBC, BMP 05/15/18 14:25 05/15/18 14:25 Discharge Summary Reason For Visit: SYNCOPE Current Active Problems Hyperglycemia (Acute) Severe anxiety with panic (Acute) Syncope (Acute) Hospital Course: Pt admitted for syncope CT head negative cardiac enzymes negative for ACS He was admitted to Telemetry - cardiac monitoring uneventful Evaluated by Cardiology-- Pt had a negative stress test in 2015 Carotid doppler-- no significant stenosis Echo--- normal EF Labs noted Pt is better stable for dc home He will need to follow up with cardiology for loop recorder placement Condition: Good - Instructions Diet, Activity, Other Instructions: Pt was admitted in [facility] for syncope- possible vasovagal cause- he is stable to return home and he may return to work on Tuesday - May 22 He is advised to follow up with cardiology as an out patient Disposition: HOME - Home Medications Comprehensive Discharge Medication List: Ambulatory Orders Benzonatate [Tessalon Pearls -] 200 mg PO TID #42 cap 05/11/18
[2018-05-17 10:46] VITALS: BP 131/78; TEMP 98.2
== END 2018-05-17 11:30 | disposition home or self-care (01) ==
LOC: JER 12:42 → JERBED 16:22 → J2W 05-16 06:00
PROVIDERS: ADMIT Internal Medicine; ATTEND Internal Medicine
PROC: 3E0337Z Introduction of Electrolytic and Water Balance Substance into Peripheral Vein, Percutaneous Approach (ICD-10-PCS; principal; 2018-05-15)
PROC: 3E013GC Introduction of Other Therapeutic Substance into Subcutaneous Tissue, Percutaneous Approach (ICD-10-PCS; 2018-05-15)
DX: R55 Syncope and collapse (principal); S09.90XA Unspecified injury of head, initial encounter; I10 Essential (primary) hypertension; E78.5 Hyperlipidemia, unspecified; J45.909 Unspecified asthma, uncomplicated; J40 Bronchitis, not specified as acute or chronic; F41.0 Panic disorder [episodic paroxysmal anxiety]; R05 Cough; K27.9 Peptic ulcer, site unspecified, unspecified as acute or chronic, without hemorrhage or perforation; R73.9 Hyperglycemia, unspecified; W19.XXXA Unspecified fall, initial encounter; Y93.89 Activity, other specified; Y92.9 Unspecified place or not applicable
CPT/HCPCS: 36415; 70450-TC; 71046-TC-FY; 80053; 80061; 82550; 83036; 83721; 83735; 84443; 84484; 85025; 85610; 93005; 93010; 93306-TC; 93880-TC; 99284-25; G0378; J7030

== ENCOUNTER 2018-06-05 09:27 | Emergency (ER) | payer BC ==
[2018-06-05 09:35] VITALS: BP 151/84; PULSE 99; TEMP 98.3; BMI 30.4
--- NOTE | 2018-06-05 10:10 | PDOC ---
History of Present Illness - General Chief Complaint: Cold Symptoms Stated Complaint: COUGHING UP BLOOD Time Seen by Provider: 06/05/18 09:51 History Source: Patient Exam Limitations: No Limitations - History of Present Illness Initial Comments: 06/05/18 12:31 Patient is a 63-year-old male with past medical history of hypertension, CAD, chronic bronchitis who presents to the ER today for worsening cough. Patient states the cough has been productive anything bringing up green and brownish sputum. Denies ngoc blood when coughing. He states that the cough kept him up all night. When he starts to coughing fit he is unable to stop and has vomited. Denies fevers, chills, chest pain, difficulty breathing, nausea and diarrhea, lightheadedness and dizziness. Past History - Travel Traveled outside of the country in the last 30 days: No Close contact w/someone who was outside of country & ill: No - Past Medical History Allergies/Adverse Reactions: Allergies Allergy/AdvReac Type Severity Reaction Status Date / Time Penicillins Allergy Verified 05/11/18 12:01 Home Medications: Ambulatory Orders Albuterol Sulfate Inhaler - [Ventolin HFA Inhaler -] 1 - 2 inh PO Q4H #1 inhaler 06/05/18 Guaifenesin AC [Robitussin AC] 10 ml PO Q8H #150 ml MDD 3 06/05/18 Methylprednisolone [Medrol Dose Kirill] 4 mg PO ASDIR #21 tablet 06/05/18 Sulfamethoxazole/Trimethoprim [Bactrim Ds -] 1 tab PO BID #14 tablet 06/05/18 Asthma: Yes COPD: No HTN: Yes Hypercholesterolemia: Yes - Immunization History Immunization Up to Date: Yes - Suicide/Smoking/Psychosocial Hx Smoking Status: No Smoking History: Never smoked Have you smoked in the past 12 months: No Number of Cigarettes Smoked Daily: 0 Hx Alcohol Use: No Drug/Substance Use Hx: No Substance Use Type: None Review of Systems - Review of Systems Able to Perform ROS?: Yes Comments:: 06/05/18 10:10 CONSTITUTIONAL: Absent: fever, chills, diaphoresis, generalized weakness, malaise, loss of appetite HEENT: Absent: rhinorrhea, nasal congestion, throat pain, throat swelling, difficulty swallowing, mouth swelling, ear pain, eye pain, visual Changes CARDIOVASCULAR: Absent: chest pain, loss of consciousness, palpitations, irregular heart rate, peripheral edema RESPIRATORY: Present: hemoptysis, cough Absent: shortness of breath, dyspnea with exertion, orthopnea, wheezing, stridor GASTROINTESTINAL: Absent: abdominal pain, abdominal distension, nausea, vomiting, diarrhea, constipation, melena, hematochezia GENITOURINARY: Absent: dysuria, frequency, urgency, hesitancy, hematuria, flank pain, genital pain MUSCULOSKELETAL: Absent: myalgia, arthralgia, joint swelling SKIN: Absent: rash, itching, pallor HEMATOLOGIC/IMMUNOLOGIC: Absent: easy bleeding, easy bruising, lymphadenopathy, frequent infections ENDOCRINE: Absent: unexplained weight gain, unexplained weight loss, heat intolerance, cold intolerance NEUROLOGIC: Absent: headache, focal weakness or paresthesias, dizziness, unsteady gait, seizure, mental status changes, bladder or bowel incontinence PSYCHIATRIC: Absent: anxiety, depression, suicidal or homicidal ideation, hallucinations. Is the patient limited Telugu proficient: No *Physical Exam - Vital Signs Last Vital Signs Temp Pulse Resp BP Pulse Ox 98.3 F 99 H 16 151/84 99 06/05/18 09:31 06/05/18 09:31 06/05/18 09:31 06/05/18 09:31 06/05/18 09:31 - Physical Exam Comments: 06/05/18 10:10 GENERAL: Well developed, well nourished. Awake and alert. No acute distress. HEENT: Normocephalic, atraumatic. PERRLA, EOMI. No conjunctival pallor. Sclera are non- icteric. Moist mucous membranes. Oropharynx is clear. NECK: Supple. Full ROM. No JVD. Carotid pulses 2+ and symmetric, without bruits. No thyromegaly. No lymphadenopathy. CARDIOVASCULAR: Regular rate and rhythm. No murmurs, rubs, or gallops. Distal pulses are 2+ and symmetric. PULMONARY: No evidence of respiratory distress. Lungs clear to auscultation bilaterally. No wheezing, rales or rhonchi. ABDOMINAL: Soft. Non-tender. Non-distended. No rebound or guarding. No organomegaly. Normoactive bowel sounds. MUSCULOSKELETAL Normal range of motion at all joints. No bony deformities or tenderness. No CVA tenderness. EXTREMITIES: No cyanosis. No clubbing. No edema. No calf tenderness. SKIN: Warm and dry. Normal capillary refill. No rashes. No jaundice. NEUROLOGICAL: Alert, awake, appropriate. Cranial nerves 2-12 intact. No deficits to light touch and temperature in face, upper extremities and lower extremities. No motor deficits in the in face, upper extremities and lower extremities. Normoreflexic in the upper and lower extremities. Normal speech. Toes are down- going bilaterally. Gait is normal without ataxia. PSYCHIATRIC: Cooperative. Good eye contact. Appropriate mood and affect. Moderate Sedation - Procedure Monitoring Vital Signs: Procedure Monitoring Vital Signs Temperature 98.3 F 06/05/18 09:31 Pulse Rate 99 H 06/05/18 09:31 Respiratory Rate 16 06/05/18 09:31 Blood Pressure 151/84 06/05/18 09:31 O2 Sat by Pulse Oximetry (%) 99 06/05/18 09:31 Medical Decision Making - Medical Decision Making 06/05/18 12:37 Patient is a 63-year-old male who presents to the ER for evaluation of cough for 4 weeks. On exam lungs are clear to auscultation bilaterally. EKG shows a rate of 89 bpm, normal sinus rhythm, normal axis. QTC 469, no acute ST-T wave changes. Chest x-ray is clear for acute respiratory issue. Patient with mild cardiomegaly Initially had ordered a Z-Kirill however given prolonged QTC the pharmacy was called in the prescription was canceled. Since Bactrim and its place. Patient follow-up with his primary care doctor this week. Most likely a bronchitis flare Discharge home I discussed the physical exam findings, ancillary test results and final diagnoses with the patient. I answered all of the patient's questions. The patient was satisfied with the care received and felt comfortable with the discharge plan and treatment plan. The Patient agrees to follow up with the primary care physician/specialist within 24-72 hours. Return precautions were given. *DC/Admit/Observation/Transfer Diagnosis at time of Disposition: Bronchitis, Cough - Discharge Dispostion Disposition: HOME Condition at time of disposition: Stable Decision to Admit order: No - Prescriptions Prescriptions: Albuterol Sulfate Inhaler - [Ventolin HFA Inhaler -] 1 - 2 inh PO Q4H #1 inhaler Azithromycin [Zithromax 250mg Tablets -] 250 mg PO UTDICT #6 tab Guaifenesin AC [Robitussin AC] 10 ml PO Q8H #150 ml MDD 3 Methylprednisolone [Medrol Dose Kirill] 4 mg PO ASDIR #21 tablet - Referrals Referrals: Miguelito Jones MD, [Staff Physician] - - Patient Instructions Printed Discharge Instructions: DI for Acute Bronchitis Additional Instructions: You have bronchitis Please use the inhaler every 4 hours for the next week to help with your cough. Your chest x-ray and EKG were normal Take the z-pack as directed Continue taking the prednisone daily for the next 4 days. You may take the Robitussin with codeine at night before bed to help with your cough. Do not drive or drink alcohol after taking this medication as it may make you sleepy. Drink plenty of fluids Please follow up with your primary care doctor in 1-2 days f your symptoms are not improving. Return to the emergency department if you have fevers, chills, worsening cough, chest pain, worsening shortness of breath or if you have any changes in your symptoms. - Post Discharge Activity Forms/Work/School Notes: Back to Work
[2018-06-05] MEDS ORDERED: ALBUTEROL SO4 2.5/IPRATROPIUM 0.5 INH SOL 3 ML VIAL.NEB. NEB ONE ×2 (10:35→10:42)
[2018-06-05] MEDS ORDERED: DEXAMETHASONE LIQUID 0.5 MG/5 ML 240 ML BULK BOTTLE PO ONE (10:35)
[2018-06-05] MEDS ORDERED: guaiFENesin/CODEINE 10 ML UNIT-DOSE CUPS PO ONE (10:35)
[2018-06-05] MEDS ORDERED: guaiFENesin/CODEINE 5 ML UNIT-DOSE CUPS PO ONE ×2 (10:41→10:42)
[2018-06-05] MEDS ORDERED: DEXAMETHASONE SOD PHOSPHATE 10 MG/1 ML VIAL ONE (10:41)
--- NOTE | 2018-06-06 10:44 | EKG ---
Test Reason : Blood Pressure : / mmHG Vent. Rate : 089 BPM Atrial Rate : 089 BPM P-R Int : 138 ms QRS Dur : 090 ms QT Int : 386 ms P-R-T Axes : 050 055 056 degrees QTc Int : 469 ms NORMAL SINUS RHYTHM POSSIBLE LEFT ATRIAL ENLARGEMENT BORDERLINE ECG Confirmed by Tariq Araiza MD ([id number]) on 06/06/2018 10:43:48 AM Referred By: RS Confirmed By:Tariq Araiza MD
== END 2018-06-05 12:30 | disposition home or self-care (01) ==
LOC: JERFT 09:27
PROC: 3E0F7GC Introduction of Other Therapeutic Substance into Respiratory Tract, Via Natural or Artificial Opening (ICD-10-PCS; principal; 2018-06-05)
DX: J40 Bronchitis, not specified as acute or chronic (principal); I25.10 Atherosclerotic heart disease of native coronary artery without angina pectoris; I10 Essential (primary) hypertension; E78.00 Pure hypercholesterolemia, unspecified; Z87.09 Personal history of other diseases of the respiratory system
CPT/HCPCS: 71046-TC-FY; 93005; 93010; 99281-25

== ENCOUNTER 2018-07-03 10:11 | Emergency (ER) | payer OTHER, BC ==
[2018-07-03 10:16] VITALS: BMI 30.4
[2018-07-03] MEDS ORDERED: ACETAMINOPHEN 325 MG TABLET (FP) PO ONE (12:04)
--- NOTE | 2018-07-03 12:04 | PDOC ---
History of Present Illness - General Chief Complaint: Injury Stated Complaint: SLIP AND FALL, HIT HEAD Time Seen by Provider: 07/03/18 12:03 History Source: Patient Exam Limitations: No Limitations - History of Present Illness Initial Comments: Pt is a 63 yo M, with PMH of HTN and CAD (was taken off BP meds by PCP) and bronchitis, who is presenting with complaints of mild frontal headache after a mechanical fall to the back of his head. 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 Pt states he slipped on a puddle and fell backwards, hitting the back of his head. He felt light- headed and needed assistance to stand up, but denies any LOC, nausea, vomiting, or light sensitivity. The pt was able to take the bus home and to the ER, and has been ambulating. Pt denies any fevers/chills, vision changes, syncope, chest pain, palpitations, SOB, nausea/vomiting, abdominal pain, urinary symptoms , diarrhea/constipation, or leg swelling. Social: Pt denies any cigarette, alcohol, or drug use. Pt denies any recent travel or sick contacts. Surgical: remote inguinal hernia repair. Family: no relevant history. 07/03/18 12:49 Past History - Travel Traveled outside of the country in the last 30 days: No Close contact w/someone who was outside of country & ill: No - Past Medical History Allergies/Adverse Reactions: Allergies Allergy/AdvReac Type Severity Reaction Status Date / Time Penicillins Allergy Verified 05/11/18 12:01 Home Medications: Ambulatory Orders Albuterol Sulfate Inhaler - [Ventolin HFA Inhaler -] 1 - 2 inh PO Q4H #1 inhaler 06/05/18 Guaifenesin AC [Robitussin AC] 10 ml PO Q8H #150 ml MDD 3 06/05/18 Methylprednisolone [Medrol Dose Kirill] 4 mg PO ASDIR #21 tablet 06/05/18 Sulfamethoxazole/Trimethoprim [Bactrim Ds -] 1 tab PO BID #14 tablet 06/05/18 Asthma: Yes COPD: No HTN: Yes Hypercholesterolemia: Yes - Immunization History Immunization Up to Date: Yes - Suicide/Smoking/Psychosocial Hx Smoking Status: No Smoking History: Never smoked Have you smoked in the past 12 months: No Number of Cigarettes Smoked Daily: 0 Information on smoking cessation initiated: No Hx Alcohol Use: No Drug/Substance Use Hx: No Substance Use Type: None Review of Systems - Review of Systems Able to Perform ROS?: Yes Is the patient limited Romansh proficient: No Constitutional: Yes: Weight Stable. No: Chills, Diaphoresis, Fever, Loss of Appetite, Malaise, Weakness HEENTM: No: Blurred Vision, Double Vision, Nose Pain, Nose Congestion, Throat Pain, Throat Swelling, Mouth Pain Respiratory: No: Cough, Orthopnea, Shortness of Breath Cardiac (ROS): Yes: Lightheadedness (after fall). No: Chest Pain, Edema, Irregular Heart Rate, Palpitations, Syncope, Chest Tightness ABD/GI: No: Constipated, Diarrhea, Nausea, Poor Appetite, Poor Fluid Intake, Vomiting : No: Burning, Dysuria, Pain, Urgency Musculoskeletal: Yes: Other (shoulder pain/paracervical). No: Back Pain, Joint Pain, Joint Swelling, Muscle Pain, Muscle Weakness, Neck Pain Integumentary: No: Rash Neurological: No: Headache, Numbness, Weakness, Unsteady Gait, Ataxia, Dizziness Psychiatric: No: Sleep Pattern Change, Change in Appetite Endocrine: No: Increased Urine, Change in Weight Hematologic/Lymphatic: No: Anemia, Blood Clots, Easy Bleeding All Other Systems: Reviewed and Negative *Physical Exam - Vital Signs Last Vital Signs Temp Pulse Resp BP Pulse Ox 98.4 F 111 H 18 129/84 97 07/03/18 10:14 07/03/18 10:14 07/03/18 10:14 07/03/18 10:14 07/03/18 10:14 - Physical Exam Comments: HR 111, BP 129/84, pt afebrile. Pt in NAD, normal body habitus. Pt alert and oriented x3. Pt ambulatory in ED. No midline spinal tenderness, step-offs, or crepitus. No focal tenderness on MSK evaluation, other than paracervical, and pt holding his shoulders upright, appears to be in spasm. 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 Head normocephalic, atraumatic. Eyes PERRLA, EOMI. Oropharynx without erythema or exudates, no LAD b/l. No nasal congestion, hearing intact. Clear heart sounds, S1/S2, no JVD, b/l pedal edema, or heart murmur. Clear lung sounds, no respiratory distress, wheezes, crackles, or accessory muscle use. No abdominal or CVA tenderness to palpation, no rebound, no guarding. Abdomen soft, non-distended, and with normoactive bowel sounds. Skin without jaundice or rash. 07/03/18 12:25 Medical Decision Making - Medical Decision Making Pt was seen at bedside, also will be seen by attending Dr. Bonilla. Pt presenting with complaints of mild frontal headache after a mechanical fall to the back of his head. 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 Pt states he slipped on a puddle and fell backwards, hitting the back of his head. He felt light-headed and needed assistance to stand up, but denies any LOC, nausea, vomiting, or light sensitivity. The pt was able to take the bus home and to the ER, and has been ambulating. Pt denies any fevers/chills, vision changes, syncope, chest pain, palpitations, SOB, nausea/vomiting, abdominal pain, urinary symptoms, diarrhea/constipation, or leg swelling. Story consistent with mechanical fall, pt denying Ordered Ct head and C-spine to r/o any acute fracture, as pt holding his neck/ shoulders in spasm, and difficult to range his neck. Provided 650 mg Po tylenol and 500 mg PO robaxin for improvement of pain and muscle spasm. Will continue to reassess pt and monitor for symptomatic improvement. 07/03/18 12:41 Ct head and c-spine showed no acute pathology. Considering normal imaging, pt can be discharged to home with follow-up. Pt advised to follow-up with PCP in 1-2 days. Strict return precautions provided with pt understanding. 07/03/18 13:49 Vitals improved, HR <100 before discharge, pt pain controlled. 07/03/18 13:56 *DC/Admit/Observation/Transfer Diagnosis at time of Disposition: Fall Qualifiers: Encounter type: initial encounter Qualified Code(s): W19.XXXA - Unspecified fall, initial encounter Closed head injury Qualifiers: Encounter type: initial encounter Qualified Code(s): S09.90XA - Unspecified injury of head, initial encounter - Discharge Dispostion Disposition: HOME Condition at time of disposition: Improved Decision to Admit order: No - Referrals - Patient Instructions Printed Discharge Instructions: DI for Closed Head Injury Additional Instructions: You were seen in the ER today after a fall. The results of your imaging today was normal. Please follow-up with your primary care doctor within 1-2 days to discuss your visit and make sure your symptoms have improved. Please return to the ER if you have any worsening pain, development of fevers or chills, loss of consciousness, inability to tolerate food or fluids, or any other concerns. Please take tylenol and motrin every 4-6 hours for pain as needed. - Post Discharge Activity
[2018-07-03] MEDS ORDERED: ACETAMINOPHEN 325 MG TABLET (FP) ONE (12:17)
[2018-07-03] MEDS ORDERED: METHOCARBAMOL 500 MG TABLET PO ONE (12:32)
[2018-07-03] MEDS ORDERED: METHOCARBAMOL 500 MG TABLET ONE (12:43)
[2018-07-03 12:50] VITALS: TEMP 98.6
--- NOTE | 2018-07-03 12:53 | PDOC ---
Attending Attestation - Resident Resident Name: Jenna Butts - ED Attending Attestation I have performed the following: I have examined & evaluated the patient, The case was reviewed & discussed with the resident, I agree w/resident's findings & plan, Exceptions are as noted - HPI HPI: 07/03/18 12:47 63 M with h/o HTN presenting to ED with ROBLES and neck pain after slipping and falling. Pt states that he was cleaning and stepped in a puddle of water. He slipped and fell backwards, hitting his head against the tile floor. Pt was able to get up with help afterwards. He then took the bus home and drove himself to the ER. Pt endorse mild frontal headache, with pain in his neck with turning his head side to side. Denies N/V. Denies LOC. Denies CP/SOB/ palpitations/dizziness. - Physicial Exam PE: 07/03/18 12:54 GENERAL: Awake, alert, and fully oriented, in no acute distress. HEAD: No signs of trauma EYES: PERRLA, EOMI, sclera anicteric, conjunctiva clear ENT: Auricles normal inspection, hearing grossly normal, nares patent, oropharynx clear without exudates. Moist mucosa NECK: + paraspinal tenderness in bilateral trapezius LUNGS: Breath sounds equal, clear to auscultation bilaterally. No wheezes, and no crackles HEART: Regular rate and rhythm, normal S1 and S2, no murmurs, rubs or gallops ABDOMEN: Soft, nontender, normoactive bowel sounds. No guarding, no rebound. No masses EXTREMITIES: Normal range of motion, no edema. No clubbing or cyanosis. No cords, erythema, or tenderness NEUROLOGICAL: Cranial nerves II through XII intact. 5/5 strength and sensation in all extremities, Normal speech, normal gait, normal cerebellar function SKIN: Warm, Dry, normal turgor, no rashes or lesions noted. - Medical Decision Making 07/03/18 12:54 63 M with headache and neck pain after mechanical fall. - CT head/c-spine - pain control 07/03/18 13:49 CTs wnl Pt is well appearing, with normal vitals. Clinically stable for DC at this time. I discussed the physical exam findings, ancillary test results and final diagnoses with the patient. I answered all of the patient's questions. The patient was satisfied with the care received and felt comfortable with the discharge plan and treatment plan. The patient agrees to follow up with the primary care physician within 24-72 hours.
[2018-07-03 13:56] VITALS: BP 119/79; PULSE 93
== END 2018-07-03 13:58 | disposition home or self-care (01) ==
LOC: JER 10:11
DX: S09.8XXA Other specified injuries of head, initial encounter (principal); R51 Headache; M62.838 Other muscle spasm; M54.2 Cervicalgia; W01.0XXA Fall on same level from slipping, tripping and stumbling without subsequent striking against object, initial encounter; Y93.H3 Activity, building and construction; Y92.29 Other specified public building as the place of occurrence of the external cause; Y99.0 Civilian activity done for income or pay; I25.10 Atherosclerotic heart disease of native coronary artery without angina pectoris; I10 Essential (primary) hypertension; E78.00 Pure hypercholesterolemia, unspecified; J45.909 Unspecified asthma, uncomplicated
CPT/HCPCS: 70450-TC; 72125-TC; 99282-25

== ENCOUNTER 2018-09-27 09:45 | Emergency (ER) | payer BC ==
[2018-09-27 09:57] VITALS: BP 139/79; PULSE 113; TEMP 97.5; BMI 30.1
--- NOTE | 2018-09-27 10:28 | PDOC ---
History of Present Illness - General Chief Complaint: Pain, Acute Stated Complaint: LT KNEE PAIN Time Seen by Provider: 09/27/18 09:56 History Source: Patient Exam Limitations: No Limitations Past History - Travel Traveled outside of the country in the last 30 days: No Close contact w/someone who was outside of country & ill: No - Past Medical History Allergies/Adverse Reactions: Allergies Allergy/AdvReac Type Severity Reaction Status Date / Time Penicillins Allergy Verified 09/27/18 09:48 Home Medications: Ambulatory Orders Guaifenesin [Mucinex -] 600 mg PO BID 09/27/18 Ibuprofen 800 mg PO TID #30 tablet 09/27/18 Asthma: Yes COPD: No HTN: Yes Hypercholesterolemia: Yes - Immunization History Immunization Up to Date: Yes - Suicide/Smoking/Psychosocial Hx Smoking Status: No Smoking History: Unknown if ever smoked Have you smoked in the past 12 months: No Number of Cigarettes Smoked Daily: 0 Hx Alcohol Use: No Drug/Substance Use Hx: No Substance Use Type: None Review of Systems - Review of Systems Able to Perform ROS?: Yes Comments:: 09/27/18 10:23 CONSTITUTIONAL: Absent: fever, chills, diaphoresis, generalized weakness, malaise, loss of appetite MUSCULOSKELETAL: Present: L knee pain Absent: myalgia, arthralgia, joint swelling SKIN: Absent: rash, itching, pallor NEUROLOGIC: Absent: headache, focal weakness or paresthesias, dizziness, unsteady gait, seizure, mental status changes, bladder or bowel incontinence PSYCHIATRIC: Absent: anxiety, depression, suicidal or homicidal ideation, hallucinations. Is the patient limited Spanish proficient: No *Physical Exam - Vital Signs Last Vital Signs Temp Pulse Resp BP Pulse Ox 97.5 F L 113 H 18 139/79 99 09/27/18 09:48 09/27/18 09:48 09/27/18 09:48 09/27/18 09:48 09/27/18 09:48 - Physical Exam Comments: 09/27/18 10:26 GENERAL: The patient is awake, alert, and fully oriented, in no acute distress. HEAD: Normal with no signs of trauma. EYES: Pupils equal, round and reactive to light, extraocular movements intact, sclera anicteric, conjunctiva clear. EXTREMITIES: TTP of the L Medial knee. skin color and temperature are normal. PMS is intact. Negative Ishaan's, posterior drawer test. Negative varus/ valgus stress tests. Negative Esperanza sign. Normal range of motion, no edema. NEUROLOGICAL: Normal speech, normal gait. PSYCH: Normal mood, normal affect. SKIN: Warm, Dry, normal turgor, no rashes or lesions noted. Medical Decision Making - Medical Decision Making 09/27/18 10:27 The patient is a 63-year-old male who presents to the ER with 1 day of left knee pain. The patient states that he got up last night to use the restroom and twisted his knee while avoiding stepping on his new kitten. He states that the knee swelled up and is tender to touch. Denies numbness and tingling to the extremity. Denies falling and hitting his head. Denies fevers, chills. A/P: Left knee sprain On exam the left medial knee is tender to the touch however all special testing is negative. Minimal swelling noted. Patient able to perform a straight leg raise. Suspect any sprain. Fidel wrap applied. Orthopedic follow-up given. Discharge home with supportive therapy I discussed the physical exam findings, ancillary test results and final diagnoses with the patient. I answered all of the patient's questions. The patient was satisfied with the care received and felt comfortable with the discharge plan and treatment plan. The Patient agrees to follow up with the primary care physician/specialist within 24-72 hours. Return precautions were given. *DC/Admit/Observation/Transfer Diagnosis at time of Disposition: Knee sprain Qualifiers: Encounter type: initial encounter Involved ligament of knee: unspecified ligament Laterality: left Qualified Code(s): S83.92XA - Sprain of unspecified site of left knee, initial encounter - Discharge Dispostion Disposition: HOME Condition at time of disposition: Stable Decision to Admit order: No - Referrals Referrals: Jean Calderón MD [Primary Care Provider] - Jerry Trujillo DO [Staff Physician] - - Patient Instructions Printed Discharge Instructions: DI for Knee Pain Additional Instructions: You sprained your knee. Please keep your ankle elevated while at rest above the level of your heart to reduce swelling. You may take Motrin 800 mg every 8 hours to help reduce pain and swelling. Do not take Gabapentin for this pain. Please ice the area for 20 minute intervals at least 5 times a day to help reduce swelling. Please wear the Fidel wrap. Please follow-up with orthopedics in 1 week if your symptoms are not improving. Return to the emergency department if you have worsening pain, or unable to walk , numbness and tingling of the foot, or had any changes in her symptoms. - Post Discharge Activity Forms/Work/School Notes: Back to Work
[2018-09-27] MEDS ORDERED: IBUPROFEN 600 MG TABLET (FP) PO ONE ×2 (10:30→10:34)
[2018-09-27] MEDS ORDERED: IBUPROFEN 400 MG TABLET (FP) PO ONE (10:33)
== END 2018-09-27 10:35 | disposition home or self-care (01) ==
LOC: JERFT 09:45
DX: S83.92XA Sprain of unspecified site of left knee, initial encounter (principal); X58.XXXA Exposure to other specified factors, initial encounter; Y93.89 Activity, other specified; Y92.89 Other specified places as the place of occurrence of the external cause; I10 Essential (primary) hypertension; J45.909 Unspecified asthma, uncomplicated; E78.00 Pure hypercholesterolemia, unspecified
CPT/HCPCS: 99282-25

== ENCOUNTER 2018-10-19 10:13 | Emergency (ER) | payer BC ==
[2018-10-19 10:22] VITALS: TEMP 97.8; BMI 30.4
--- NOTE | 2018-10-19 10:49 | PDOC ---
History of Present Illness - General Chief Complaint: Lightheaded Stated Complaint: HEAD PAIN / FALL Time Seen by Provider: 10/19/18 10:49 Past History - Past Medical History Allergies/Adverse Reactions: Allergies Allergy/AdvReac Type Severity Reaction Status Date / Time Penicillins Allergy Verified 10/19/18 10:18 Home Medications: Ambulatory Orders Azithromycin [Zithromax -] 250 mg PO DAILY 10/19/18 Meclizine HCl [Antivert -] 25 mg PO DAILY #30 tablet 10/19/18 Asthma: Yes COPD: No HTN: Yes Hypercholesterolemia: Yes - Immunization History Immunization Up to Date: Yes - Suicide/Smoking/Psychosocial Hx Smoking Status: No Smoking History: Never smoked Have you smoked in the past 12 months: No Number of Cigarettes Smoked Daily: 0 Hx Alcohol Use: No Drug/Substance Use Hx: No Substance Use Type: None *Physical Exam - Vital Signs Last Vital Signs Temp Pulse Resp BP Pulse Ox 97.8 F 114 H 18 129/85 98 10/19/18 10:19 10/19/18 10:19 10/19/18 10:19 10/19/18 10:19 10/19/18 10:19 ED Treatment Course - LABORATORY CBC & Chemistry Diagram: 10/19/18 11:12 10/19/18 11:12 Medical Decision Making - Medical Decision Making 10/19/18 12:30 HPI Lincoln Pena is a 63 year old man with a history of HTN, prior falls and recurrent bronchitis who presents after feeling unsteady on his feet, falling and hitting his head multiple times. The patient reports that he was crossing the street when he began feeling unsteady and lost his balance and hit his head along a wall and slid down. As he was trying to get up, when he tried to stand he felt unsteady and again hit his head. At that time his friend saw him and brought him to the ED. He denies any nausea, chest pain, shortness of breath, changes in vision or hearing. He denies any alcohol or recreational drug use. Has no other complaints at this time aside from feelings of shakiness Patient is on day 2 of a zpak for bronchitis ROS GENERAL/CONSTITUTIONAL: No fever or chills. No weakness. HEAD, EYES, EARS, NOSE AND THROAT: No change in vision. No ear pain or discharge. No sore throat. CARDIOVASCULAR: No chest pain or shortness of breath RESPIRATORY: No cough, wheezing, or hemoptysis. GASTROINTESTINAL: No nausea, vomiting, diarrhea or constipation. GENITOURINARY: No dysuria, frequency, or change in urination. MUSCULOSKELETAL: No joint or muscle swelling or pain. No neck or back pain. SKIN: No rash NEUROLOGIC: No headache, vertigo, loss of consciousness, or change in strength/ sensation. ENDOCRINE: No increased thirst. No abnormal weight change HEMATOLOGIC/LYMPHATIC: No anemia, easy bleeding, or history of blood clots. ALLERGIC/IMMUNOLOGIC: No hives or skin allergy. PE GENERAL: Awake, alert, and fully oriented, in no acute distress HEAD: No signs of trauma, normocephalic, atraumatic EYES: PERRLA, EOMI, sclera anicteric, conjunctiva clear ENT: oropharynx clear without exudates. Moist mucosa NECK: Normal ROM, supple LUNGS: No distress, speaks full sentences, clear to auscultation bilaterally HEART: Regular rate and rhythm, normal S1 and S2, no murmurs, rubs or gallops, peripheral pulses normal and equal bilaterally. ABDOMEN: Soft, nontender, normoactive bowel sounds. No guarding, no rebound. No masses EXTREMITIES : Normal inspection, Normal range of motion, no edema. No clubbing or cyanosis. NEUROLOGICAL: Cranial nerves II through XII grossly intact. Normal speech, no focal sensorimotor deficits SKIN: Warm, Dry, normal turgor, no rashes or lesions noted MDM Lincoln Pena is a 63 year old man with a history of HTN, prior falls and recurrent bronchitis who presents after feeling unsteady on his feet, falling and hitting his head multiple times. DDX including but not limited to: dehydration vs peripheral vertigo vs intracranial pathology r/o acs vs electroylte abnormality W/U: - cbc, cmp ,ekg, trop, cxr, head ct TX: - meclizine, ivf ED Course: labs - wnl head ct- wnl patient able to walk iwthout difficulty and notes improvment of symptoms repeat trop negative patient stable for discharge and expresses understadnig of f.u and return precautions. Mary Loza, PGY2 Emergency Medicine *DC/Admit/Observation/Transfer Diagnosis at time of Disposition: Vertigo, Fall - Discharge Dispostion Disposition: HOME Condition at time of disposition: Stable Decision to Admit order: No - Prescriptions Prescriptions: Meclizine HCl [Antivert -] 25 mg PO DAILY #30 tablet - Referrals Referrals: Ronni Pearson MD [Staff Physician] - - Patient Instructions Printed Discharge Instructions: DI for Vertigo, How to Prevent Falls Additional Instructions: You were seen in the ED for complaints of fall after dizziness. In the ED you were evaluated with labwork and imaging. Your results were largely unremarkable. There does not appear to be an acute need for immediate hospitalization. You are advised to follow up with your Primary Care Physician within 1 week. You were given a referral to Neurology and advised to follow up within 1 week. You were given a prescription for Meclizine to be used as prescribed Return to the ED immediately if you experience worsening symptoms, headache, loss of consciousness, chest pain or shortness of breath. - Post Discharge Activity Forms/Work/School Notes: Back to Work
[2018-10-19 11:30] LABS: BASO % 0.2 % (0-2.0); HEMATOCRIT 45.8 % (35.4-49); HEMOGLOBIN 15.5 GM/dL (11.7-16.9); LYMPH % 15.2 % (8-40); MCH 29.4 pg (25.7-33.7); MEAN CELL VOLUME 86.5 fl (80-96); MEAN PLT VOLUME 7.7 fl (7.5-11.1); MONO % 8.5 % (3.8-10.2); NEUT % 75.1 % (42.8-82.8); PLATELET COUNT 311 K/MM3 (134-434); RBC 5.29 M/mm3 (4.00-5.60); RDW 13.6 % (11.9-15.9)
[2018-10-19] MEDS ORDERED: SODIUM CHLORIDE 1,000 ML IV SCH (11:30)
[2018-10-19] MEDS ORDERED: MECLIZINE HCL 25 MG TABLET (FP) PO ONE (11:59)
[2018-10-19 12:02] LABS: ALBUMIN 3.8 g/dl (3.4-5.0); ALK PHOS 86 U/L (45-117); ANION GAP 5 MMOL/L (8-16); BILIRUBIN,TOTAL 0.6 mg/dL (0.2-1); BLOOD UREA NITROGEN 16.6 mg/dL (7-18); CALCIUM 9.4 mg/dL (8.5-10.1); CHLORIDE 112 mmol/L (98-107); CO2 26 mmol/L (21-32); CREATININE 0.9 mg/dL (0.55-1.3); GLUCOSE,RANDOM 118 mg/dL (74-106); POTASSIUM 4.1 mmol/L (3.5-5.1); SGOT/AST 11 U/L (15-37); SGPT/ALT 16 U/L (13-61); SODIUM 144 mmol/L (136-145)
[2018-10-19] MEDS ORDERED: MECLIZINE HCL 25 MG TABLET (FP) ONE (12:19)
--- NOTE | 2018-10-19 13:21 | PDOC ---
Attending Attestation - Resident Resident Name: Elvis Lozaie - ED Attending Attestation I have performed the following: I have examined & evaluated the patient, The case was reviewed & discussed with the resident, I agree w/resident's findings & plan, Exceptions are as noted - HPI HPI: 10/19/18 13:16 63 M with h/o HTN presenting to ED with fall and dizziness. Pt states that he began to experience room-spinning dizziness today. This caused him to lose his balance and fall, hitting his head against a wall. Pt attempted to get up but fell again. Pt denies ROBLES/N/V. Denies CP/SOB. Denies lightheadedness. Denies weakness/numbness in any extremity. At time of my evaluation, pt reports resolution of dizziness. - Physicial Exam PE: 10/19/18 13:18 "GENERAL: Awake, alert, and fully oriented, in no acute distress. HEAD: No signs of trauma EYES: PERRLA, EOMI, sclera anicteric, conjunctiva clear ENT: Auricles normal inspection, hearing grossly normal, nares patent, oropharynx clear without exudates. Moist mucosa NECK: Nontender, no stepoffs, Normal ROM, supple, no lymphadenopathy, JVD, or masses LUNGS: Breath sounds equal, clear to auscultation bilaterally. No wheezes, and no crackles HEART: Regular rate and rhythm, normal S1 and S2, no murmurs, rubs or gallops ABDOMEN: Soft, nontender, normoactive bowel sounds. No guarding, no rebound. No masses EXTREMITIES: Normal range of motion, no edema. No clubbing or cyanosis. No cords, erythema, or tenderness NEUROLOGICAL: Cranial nerves II through XII intact. 5/5 strength and sensation in all extremities, Normal speech, normal gait, normal cerebellar function SKIN: Warm, Dry, normal turgor, no rashes or lesions noted. - Medical Decision Making 10/19/18 13:18 63 M with room-spinning dizziness and fall today. Dizziness now resolved. Pt with no neuro deficits on my exam to suggest CVA. Possible BPPV. - Labs - CT head - Meclizine, IVF Pt ambulated in ED with steady gait - slightly broad-based gait but pt reports this is his baseline. Denies any unsteadiness or dizziness at this time 10/19/18 14:[address] head unremarkable Pt reassessed - continues to feel well, no recurrent dizziness Pt ambulated in ED once again, steady gait Pt is well appearing, with normal vitals. Clinically stable for DC at this time. I discussed the physical exam findings, ancillary test results and final diagnoses with the patient. I answered all of the patient's questions. The patient was satisfied with the care received and felt comfortable with the discharge plan and treatment plan. The patient agrees to follow up with the primary care physician within 24-72 hours.
[2018-10-19 14:51] VITALS: BP 119/78; PULSE 85
--- NOTE | 2018-10-19 17:17 | EKG ---
Test Reason : Blood Pressure : / mmHG Vent. Rate : 091 BPM Atrial Rate : 091 BPM P-R Int : 136 ms QRS Dur : 086 ms QT Int : 376 ms P-R-T Axes : 052 064 055 degrees QTc Int : 462 ms NORMAL SINUS RHYTHM NORMAL ECG WHEN COMPARED WITH ECG OF 05-JUN-2018 11:16, NO SIGNIFICANT CHANGE WAS FOUND Confirmed by ANTON ANGELO MD ([id number]) on 10/19/2018 5:17:07 PM Referred By: Confirmed By:ANTON ANGELO MD
== END 2018-10-19 15:11 | disposition home or self-care (01) ==
LOC: JER 10:13
DX: S09.8XXA Other specified injuries of head, initial encounter (principal); R42 Dizziness and giddiness; R26.81 Unsteadiness on feet; W18.39XA Other fall on same level, initial encounter; Y93.01 Activity, walking, marching and hiking; Y92.89 Other specified places as the place of occurrence of the external cause; Y99.8 Other external cause status; Z91.81 History of falling; I10 Essential (primary) hypertension; E78.00 Pure hypercholesterolemia, unspecified
CPT/HCPCS: 36415; 70450-TC; 71046-TC-FY; 80053; 84484; 85025; 93005; 93010; 99283-25; J7030